=== PATIENT | male | born 1980 | race Caucasian/White ===

== ENCOUNTER 2017-10-01 10:36 | Inpatient (IN) | payer OTHER ==
[2017-10-01 10:44] VITALS: BMI 25.0
--- NOTE | 2017-10-01 12:49 | HP ---
CIWA Score - CIWA Score Nausea/Vomitin Muscle Tremors: 3 Anxiety: 3 Agitation: 3 Paroxysmal Sweats: 2 Orientation: 0-Oriented Tacttile Disturbances: 2-Mild Itch/Numbness/Burn Auditory Disturbances: 2-Mild Harshness/Frighten Visual Disturbances: 1-Very Mild Sensitivity Headache: 2-Mild CIWA-Ar Total Score: 21 Admission ROS BHS - HPI Chief Complaint: i need help to stop drinking alcoho,heroin abused Allergies/Adverse Reactions: Allergies Allergy/AdvReac Type Severity Reaction Status Date / Time chlordiazepoxide HCl Allergy Severe Difficulty Verified 10/01/17 13:30 [From Librium] Breathing haloperidol [From Haldol] Allergy Severe Difficulty Verified 10/01/17 12:41 Breathing History of Present Illness: this 37 years old male with alcohol dependence with heroin abused,seeking detox, withdrawal symptom,last detox [facility] 09/08/17 to 09/10/17 seizure last 2010 syncope nicotine dependence schizoaffective disorder bipolar disorder weight loss longest period of sobriety 3 years asthma Exam Limitations: No Limitations - Ebola screening Have you traveled outside of the country in the last 21 days: No Have you had contact with anyone from an Ebola affected area: No Have you been sick,other than usual withdrawal symptoms: No Do you have a fever: No - Review of Systems Constitutional: Loss of Appetite, Malaise, Night Sweats, Changes in sleep, Weakness, Unexplained wgt Loss EENT: reports: Nose Congestion Cardiac: reports: No Symptoms Reported, Other (childhood asthma) GI: reports: Nausea, Vomiting, Abdominal cramping : reports: No Symptoms Reported Musculoskeletal: reports: Back Pain, Muscle Pain Integumentary: reports: Dryness Neuro: reports: Headache, Tremors Endocrine: reports: No Symptoms Reported Hematology: reports: No Symptoms Reported Psychiatric: reports: No Sypmtoms Reported, Judgement Intact, Mood/Affect Appropiate, Orientated x3, other (schizoaffective disorder bipolar 1 disorder) Patient History - Patient Medical History Hx Anemia: No Hx Asthma: No Hx Chronic Obstructive Pulmonary Disease (COPD): No Hx Cancer: No Hx Cardiac Disorders: No Hx Congestive Heart Failure: No Hx Hypertension: No Hx Hypercholesterolemia: No Hx Pacemaker: No HX Cerebrovascular Accident: No Hx Seizures: Yes (pt. reported alcohol r/t seizure, last episode was one yr ago. ) Hx Dementia: No Hx Diabetes: No Hx Gastrointestinal Disorders: No Hx Liver Disease: No Hx Genitourinary Disorders: No Hx Sexually Transmitted Disorders: No Hx Renal Disease (ESRD): No Hx Hepatitis C: No Hx Depression: Yes Hx Suicide Attempt: Yes (CUTTER,OVERDOSE) Hx Schizophrenia: Yes (SCHIZOAFFECTIVE BIPOLAR TYPE) Other Medical History: NO SUICIDAL,NO HOMICIDAL - Patient Surgical History Past Surgical History: No Hx Neurologic Surgery: No Hx Cataract Extraction: No Hx Cardiac Surgery: No Hx Lung Surgery: No Hx Breast Surgery: No Hx Breast Biopsy: No Hx Abdominal Surgery: No Hx Appendectomy: No Hx Cholecystectomy: No Hx Genitourinary Surgery: No Hx Section: No Hx Orthopedic Surgery: No Anesthesia Reaction: No - PPD History Previous Implant?: Yes Documented Results: Negative w/o proof Date: 03/30/16 Results: 0 mm - Smoking Cessation Smoking history: Current every day smoker Have you smoked in the past 12 months: Yes Aproximately how many cigarettes per day: 10 Cigars Per Day: 0 Hx Chewing Tobacco Use: No Initiated information on smoking cessation: Yes 'Breaking Loose' booklet given: 10/01/17 - Substance & Tx. History Hx Alcohol Use: Yes Hx Substance Use: No Substance Use Type: Alcohol, Heroin Hx Substance Use Treatment: Yes ([facility] 09/08/17 TO 09/10/17) - Substances Abused Alcohol Route: Oral Frequency: Daily Amount used: 4-5 pints vodka Age of first use: 12 Date of Last Use: 10/01/17 Heroin Route: Inhalation Frequency: 3-6 times per week Amount used: 3 bags Age of first use: 29 Date of Last Use: 09/17/17 Family Disease History - Family Disease History Family Disease History: Diabetes: Grandparent (HTN,OR,BREAST), Heart Disease: Grandparent, CA: Grandparent Admission Physical Exam BHS - Vital Signs Vital Signs: Vital Signs - 24 hr 10/01/17 10:38 Temperature 96.8 F L Pulse Rate 123 H Respiratory 20 Rate Blood Pressure 111/70 - Physical General Appearance: Yes: Moderate Distress, Tremorous, Irritable, Sweating, Anxious HEENTM: Yes: Normal ENT Inspection, CAMILA, Pharynx Normal Respiratory: Yes: Lungs Clear, Normal Breath Sounds, No Respiratory Distress Neck: Yes: Within Normal Limits, Supple, Trachea in good position Breast: Yes: Within Normal Limits Cardiology: Yes: Tachycardia Abdominal: Yes: Within Normal Limits, Normal Bowel Sounds, Non Tender, Flat, Soft Genitourinary: Yes: Within Normal Limits Back: Yes: Muscle Spasm Musculoskeletal: Yes: full range of Motion, Back pain, Muscle Pain Extremities: Yes: Within Normal Limits, Normal Range of Motion, Tremors Neurological: Yes: Within Normal Limits, tech brazer tester II-XII NML intact, Alert, Motor Strength 5/5 Integumentary: Yes: Dry, Other (TATTOOS) Lymphatic: Yes: Within Normal Limits - Diagnostic (1) Alcohol dependence with uncomplicated withdrawal Current Visit: Yes Status: Acute (2) Nicotine dependence Current Visit: Yes Status: Chronic Qualifiers: Nicotine product type: cigarettes Substance use status: uncomplicated Qualified Code(s): F17.210 - Nicotine dependence, cigarettes, uncomplicated (3) Schizoaffective disorder, bipolar type Current Visit: Yes Status: Chronic Comment: history. (4) Weight loss Current Visit: Yes Status: Acute Cleared for Admission [facility] - Detox or Rehab [facility] Level of Care: Medically Managed Detox Regimen/Protocol: Valium [facility] Breath Alcohol Content Breath Alcohol Content: 0.266 Urine Drug Screen - Results Drug Screen Negative: No Urine Drug Screen Results: TCA-Tricyclic Antidepress
[2017-10-01] MEDS ORDERED: MAGNESIUM CITRATE 300 ML BOTTLE PO PRN (12:58)
[2017-10-01] MEDS ORDERED: MAG HYDROX/AL HYDROX/SIMETH 30 ML UNIT-DOSE CUP PO PRN (12:58)
[2017-10-01] MEDS ORDERED: LOPERAMIDE HCL 2 MG CAPSULE PO PRN (12:58)
[2017-10-01] MEDS ORDERED: IBUPROFEN 400 MG TABLET (FP) PO PRN (12:58)
[2017-10-01] MEDS ORDERED: MAGNESIUM HYDROX 2400MG/30ML ORAL SUSPENSION 30 ML CUP PO PRN (12:58)
[2017-10-01] MEDS ORDERED: ACETAMINOPHEN 325 MG TABLET (FP) PO PRN (12:58)
[2017-10-01] MEDS ORDERED: P-EPHED 60MG/TRIPROLIDI 2.5MG TABLET PO PRN (12:58)
[2017-10-01] MEDS ORDERED: hydrOXYzine PAMOATE 50 MG CAPSULE (FP) PO PRN (12:58)
[2017-10-01] MEDS ORDERED: guaiFENesin/D-METHORPHAN HB 10 ML UNIT-DOSE CUPS PO PRN (12:58)
[2017-10-01] MEDS ORDERED: MENTHOL/PHENOL 1 EACH UD MM PRN (12:58)
[2017-10-01] MEDS ORDERED: ALBUTEROL SO4 18 GM HFA INHALER IH PRN (13:04)
[2017-10-01] MEDS ORDERED: diazePAM 5 MG TABLET PO ONE (15:00)
--- NOTE | 2017-10-01 16:15 | CONSULT ---
[facility] Psychiatric Consult - Data Date of interview: 10/01/17 Admission source: [facility] Identifying data: Pt. is a 37 year old single male, father of three, unemployed , homeless, and receiving benefits from SSI/SSD. This is one of two admissions for patient. Pt. admitted to detox for alcohol dependence. Substance Abuse History: Smoking Cessation. Smoking history: Current every day smoker. Have you smoked in the past 12 months: Yes. Aproximately how many cigarettes per day: 10. Cigars Per Day: 0. Hx Chewing Tobacco Use: No. Initiated information on smoking cessation: Yes. 'Breaking Loose' booklet given : 10/01/17. - Substance & Tx. History. Hx Alcohol Use: Yes. Hx Substance Use : No. Substance Use Type: Alcohol, Heroin. Hx Substance Use Treatment: Yes ( [facility] 09/08/17 TO 09/10/17) Medical History: Seizures ( r/t alcohol withdrawal) Psychiatric History: Patient's first encounter with a psychiatrist was in 2003 while living in [place] which resulted in a diagnosis of Bipolar disorder. Pt. reports approximately ten psychiatric hospitalizations, most recently from 2008- 2009 at [facility] for ten months. Pt. was diagnosed with Schizoaffective disorder. Pt. has also been hospitalized at [facility] and [facility]. Pt. is currently receiving outpatient treatment at [facility] outpatient clinic. Pt. reports taking Seroquel 800mg qhs + Mirtzapine 30mg qhs. [facility] [phone] and residential mortgage underwriter was informed that patient is prescribed Seroquel 400mg BID and Mirtazapine 30mg qhs. Pt. reports approximately 5 suicide attempts via cutting from 2003- 2008. Pt. currently denies suicidal and homicidal ideation. Physical/Sexual Abuse/Trauma History: Denies. Mental Status Exam - Mental Status Exam Alert and Oriented to: Time, Place, Person Cognitive Function: Good Patient Appearance: Well Groomed Mood: Euthymic Affect: Appropriate Patient Behavior: Appropriate, Cooperative Speech Pattern: Clear, Appropriate Voice Loudness: Normal Thought Process: Goal Oriented Thought Disorder: Not Present Hallucinations: Denies Suicidal Ideation: Denies Homicidal Ideation: Denies Insight/Judgement: Poor Sleep: Poorly Appetite: Fair Muscle strength/Tone: Normal Gait/Station: Normal Psychiatric Findings - Problem List ([place] 1, 2,3) (1) Alcohol dependence with uncomplicated withdrawal Current Visit: Yes Status: Acute (2) Nicotine dependence Current Visit: Yes Status: Chronic Qualifiers: Nicotine product type: cigarettes Substance use status: uncomplicated Qualified Code(s): F17.210 - Nicotine dependence, cigarettes, uncomplicated (3) Schizoaffective disorder, bipolar type Current Visit: Yes Status: Chronic Comment: history. - Initial Treatment Plan Initial Treatment Plan: Psychoeducation provided. Detoxification in progress. [facility] pharmacy called at [phone]. As per [facility] pharmacy patient is prescribed Seroquel 400mg BID (last script given on 09/02/16) + Mirtzapine 30mg qhs ( last script given on 09/21/17). Seroquel 400mg qhs + Mirtzapine 30mg qhs + Seroquel 100mg po daily to be ordered (reduce dosage due to oversedation of drug to drug interaction). Plan is to titrate Seroquel morning dose as tolerated. Pt. agreeable with plan. Benefits and side effects discussed. Verbal consent given. Will continue to monitor.
[2017-10-01 18:32] LABS: URINE APPEARANCE CLEAR; URINE BILIRUBIN NEGATIVE (<2.0 mg/dL); URINE BLOOD NEGATIVE (NEGATIVE); URINE COLOR YELLOW; URINE GLUCOSE (UA) NEGATIVE (NEGATIVE); URINE KETONE NEGATIVE (NEGATIVE); URINE LEUK ESTERASE NEGATIVE (NEGATIVE); URINE NITRITE NEGATIVE (NEGATIVE); URINE PROTEIN NEGATIVE (NEGATIVE); URINE UROBILINOGEN NEGATIVE mg/dL (0.2-1.0)
[2017-10-01] MEDS: diazePAM 5 MG TABLET PO PRN (19:04)
[2017-10-01] MEDS: THIAMINE HCL 100 MG TABLET (FP) PO SCH (22:09)
[2017-10-01] MEDS: QUEtiapine FUMARATE 400 MG TABLET PO SCH (22:10)
[2017-10-01] MEDS: diazePAM 5 MG TABLET PO SCH (22:10)
[2017-10-01] MEDS: MELATONIN 5 MG TABLETS PO SCH (22:10)
[2017-10-01] MEDS: MIRTAZAPINE 30 MG TABLET (FP) PO SCH (22:10)
[2017-10-02] MEDS: diazePAM 5 MG TABLET PO SCH ×3 (05:52→22:11)
[2017-10-02 09:57] LABS: HEMATOCRIT 44.7 % (35.4-49); HEMOGLOBIN 15.1 GM/dL (11.7-16.9); MCHC 33.7 g/dl (32.0-35.9); MEAN CELL VOLUME 103.7 fl (80-96); MEAN PLT VOLUME 7.6 fl (7.5-11.1); PLATELET COUNT 199 K/MM3 (134-434); RDW 16.3 % (11.9-15.9); WHITE BLOOD COUNT 4.6 K/mm3 (4.0-10.0)
[2017-10-02] MEDS: QUEtiapine FUMARATE 100 MG TABLET (FP) PO SCH (10:23)
[2017-10-02] MEDS: PRENATAL VITAMINS W/ FOLIC ACID TABLET (FP) PO SCH (10:23)
[2017-10-02] MEDS: diazePAM 5 MG TABLET PO PRN ×2 (10:24→16:45)
[2017-10-02 10:26] LABS: ALBUMIN 4.1 g/dl (3.4-5.0); ALK PHOS 85 U/L (45-117); ANION GAP 15 (8-16); BILIRUBIN,TOTAL 0.3 mg/dL (0.2-1.0); BLOOD UREA NITROGEN 12 mg/dL (7-18); CALCIUM 8.7 mg/dL (8.5-10.1); CHLORIDE 104 mmol/L (98-107); CO2 26 mmol/L (21-32); CREATININE 0.9 mg/dL (0.7-1.3); POTASSIUM 3.8 mmol/L (3.5-5.1); SGOT/AST 35 U/L (15-37); SGPT/ALT 32 U/L (12-78); SODIUM 145 mmol/L (136-145); TOT PROT 7.3 g/dl (6.4-8.2)
[2017-10-02] MEDS ORDERED: FLU VACCINE QUAD 60 MCG/0.5 ML (MDV 17-18) IM ONE (12:00)
--- NOTE | 2017-10-02 21:16 | PN ---
[facility] CIWA - CIWA Score Nausea/Vomitin Muscle Tremors: 3 Anxiety: 3 Agitation: 2 Paroxysmal Sweats: 2 Orientation: 0-Oriented Tacttile Disturbances: 0-None Auditory Disturbances: 0-None Visual Disturbances: 0-None Headache: 0-None Present CIWA-Ar Total Score: 13 BHS COWS - Scale Resting Pulse: 1= PA 81-100 Sweatin=Flushed/Facial Moisture Restless Observation: 1= Difficult to Sit Still Pupil Size: 0= Normal to Room Light Bone or Joint Aches: 1= Mild Discomfort Runny Nose/ Eye Tearin= Nasal Congestion GI Upset > 30mins: 1= Stomach Cramp Tremor Observation of Outstretched Hands: 2= Slight Tremor Visible Yawning Observation: 1= 1-2x During Session Anxiety or Irritability: 2=Irritable/Anxious Goose Flesh Skin: 0=Smooth Skin COWS Score: 12 [facility] Progress Note (SOAP) Subjective: shakes nasal congestion sleep disturbance sweats Objective: 10/02/17 21:15 A & O x 3 Laboratory Last Values WBC 4.6 K/mm3 (4.0-10.0) 10/02/17 06:00 RBC 4.30 M/mm3 (4.00-5.60) 10/02/17 06:00 Hgb 15.1 GM/dL (11.7-16.9) D 10/02/17 06:00 Hct 44.7 % (35.4-49) 10/02/17 06:00 MCV 103.7 fl (80-96) H 10/02/17 06:00 MCH 35.0 pg (25.7-33.7) H 10/02/17 06:00 MCHC 33.7 g/dl (32.0-35.9) 10/02/17 06:00 RDW 16.3 % (11.9-15.9) H D 10/02/17 06:00 Plt Count 199 K/MM3 (134-434) D 10/02/17 06:00 MPV 7.6 fl (7.5-11.1) 10/02/17 06:00 Sodium 145 mmol/L (136-145) 10/02/17 06:00 Potassium 3.8 mmol/L (3.5-5.1) 03/24/18 06:00 Chloride 104 mmol/L (98-107) 10/02/17 06:00 Carbon Dioxide 26 mmol/L (21-32) 10/02/17 06:00 Anion Gap 15 (8-16) 10/02/17 06:00 BUN 12 mg/dL (7-18) 10/02/17 06:00 Creatinine 0.9 mg/dL (0.7-1.3) 10/02/17 06:00 Creat Clearance w eGFR > 60 (>60) 10/02/17 06:00 Calcium 8.7 mg/dL (8.5-10.1) 10/02/17 06:00 Total Bilirubin 0.3 mg/dL (0.2-1.0) D 10/02/17 06:00 AST 35 U/L (15-37) D 10/02/17 06:00 ALT 32 U/L (12-78) D 10/02/17 06:00 Alkaline Phosphatase 85 U/L (45-117) D 10/02/17 06:00 Total Protein 7.3 g/dl (6.4-8.2) 10/02/17 06:00 Albumin 4.1 g/dl (3.4-5.0) 10/02/17 06:00 Urine Color Yellow 10/01/17 17:30 Urine Appearance Clear 10/01/17 17:30 Urine pH 7.0 (5.0-8.0) 10/01/17 17:30 Ur Specific [place] 1.019 (1.001-1.035) 10/01/17 17:30 Urine Protein Negative (NEGATIVE) 10/01/17 17:30 Urine Glucose (UA) Negative (NEGATIVE) 10/01/17 17:30 Urine Ketones Negative (NEGATIVE) 10/01/17 17:30 Urine Blood Negative (NEGATIVE) 10/01/17 17:30 Urine Nitrite Negative (NEGATIVE) 10/01/17 17:30 Urine Bilirubin Negative (<2.0 mg/dL) 10/01/17 17:30 Urine Urobilinogen Negative mg/dL (0.2-1.0) 10/01/17 17:30 Ur Leukocyte Esterase Negative (NEGATIVE) 10/01/17 17:30 labs noted Assessment: 10/02/17 21:16 withdrawal sx Plan: continue detox
[2017-10-02] MEDS: MELATONIN 5 MG TABLETS PO SCH (22:10)
[2017-10-02] MEDS: QUEtiapine FUMARATE 400 MG TABLET PO SCH (22:11)
[2017-10-02] MEDS: MIRTAZAPINE 30 MG TABLET (FP) PO SCH (22:11)
[2017-10-02] MEDS: THIAMINE HCL 100 MG TABLET (FP) PO SCH (22:12)
[2017-10-03] MEDS: diazePAM 5 MG TABLET PO PRN ×2 (06:14→13:59)
[2017-10-03] MEDS: diazePAM 5 MG TABLET PO SCH ×2 (10:40→22:32)
[2017-10-03] MEDS: QUEtiapine FUMARATE 100 MG TABLET (FP) PO SCH (10:40)
[2017-10-03] MEDS: PRENATAL VITAMINS W/ FOLIC ACID TABLET (FP) PO SCH (10:40)
--- NOTE | 2017-10-03 12:08 | PN ---
[facility] CIWA - CIWA Score Nausea/Vomitin-No Nausea/No Vomiting Muscle Tremors: 4-Moderate,w/Arms Extend Anxiety: 4-Mod. Anxious/Guarded Agitation: 3 Paroxysmal Sweats: 1-Minimal Palms Moist Orientation: 0-Oriented Tacttile Disturbances: 0-None Auditory Disturbances: 0-None Visual Disturbances: 0-None Headache: 0-None Present CIWA-Ar Total Score: 12 BHS Progress Note (SOAP) Subjective: sweat tremor anxiety restlessness Objective: 10/03/17 12:07 Vital Signs Temperature 99 F 10/03/17 10:00 Pulse Rate 95 H 10/03/17 10:00 Respiratory Rate 16 10/03/17 10:00 Blood Pressure 127/86 10/03/17 10:00 O2 Sat by Pulse Oximetry (%) Laboratory Last Values WBC 4.6 K/mm3 (4.0-10.0) 10/02/17 06:00 RBC 4.30 M/mm3 (4.00-5.60) 10/02/17 06:00 Hgb 15.1 GM/dL (11.7-16.9) D 10/02/17 06:00 Hct 44.7 % (35.4-49) 10/02/17 06:00 MCV 103.7 fl (80-96) H 10/02/17 06:00 MCH 35.0 pg (25.7-33.7) H 10/02/17 06:00 MCHC 33.7 g/dl (32.0-35.9) 10/02/17 06:00 RDW 16.3 % (11.9-15.9) H D 10/02/17 06:00 Plt Count 199 K/MM3 (134-434) D 10/02/17 06:00 MPV 7.6 fl (7.5-11.1) 10/02/17 06:00 Sodium 145 mmol/L (136-145) 10/02/17 06:00 Potassium 3.8 mmol/L (3.5-5.1) 10/02/17 06:00 Chloride 104 mmol/L (98-107) 10/02/17 06:00 Carbon Dioxide 26 mmol/L (21-32) 10/02/17 06:00 Anion Gap 15 (8-16) 10/02/17 06:00 BUN 12 mg/dL (7-18) 10/02/17 06:00 Creatinine 0.9 mg/dL (0.7-1.3) 10/02/17 06:00 Creat Clearance w eGFR > 60 (>60) 10/02/17 06:00 Calcium 8.7 mg/dL (8.5-10.1) 10/02/17 06:00 Total Bilirubin 0.3 mg/dL (0.2-1.0) D 10/02/17 06:00 AST 35 U/L (15-37) D 10/02/17 06:00 ALT 32 U/L (12-78) D 10/02/17 06:00 Alkaline Phosphatase 85 U/L (45-117) D 10/02/17 06:00 Total Protein 7.3 g/dl (6.4-8.2) 10/02/17 06:00 Albumin 4.1 g/dl (3.4-5.0) 10/02/17 06:00 Urine Color Yellow 10/01/17 17:30 Urine Appearance Clear 10/01/17 17:30 Urine pH 7.0 (5.0-8.0) 10/01/17 17:30 Ur Specific [place] 1.019 (1.001-1.035) 10/01/17 17:30 Urine Protein Negative (NEGATIVE) 10/01/17 17:30 Urine Glucose (UA) Negative (NEGATIVE) 10/01/17 17:30 Urine Ketones Negative (NEGATIVE) 10/01/17 17:30 Urine Blood Negative (NEGATIVE) 10/01/17 17:30 Urine Nitrite Negative (NEGATIVE) 10/01/17 17:30 Urine Bilirubin Negative (<2.0 mg/dL) 10/01/17 17:30 Urine Urobilinogen Negative mg/dL (0.2-1.0) 10/01/17 17:30 Ur Leukocyte Esterase Negative (NEGATIVE) 10/01/17 17:30 RPR Titer Nonreactive (NONREACTIVE) 10/02/17 06:00 lab noted Assessment: 10/03/17 12:09 withdrawal sx Plan: continue detox
[2017-10-03 14:13] LABS: GLUCOSE,RANDOM 134 mg/dL (74-106)
[2017-10-03] MEDS: MIRTAZAPINE 30 MG TABLET (FP) PO SCH (22:32)
[2017-10-03] MEDS: THIAMINE HCL 100 MG TABLET (FP) PO SCH (22:32)
[2017-10-03] MEDS: MELATONIN 5 MG TABLETS PO SCH (22:32)
[2017-10-03] MEDS: QUEtiapine FUMARATE 400 MG TABLET PO SCH (22:32)
[2017-10-04] MEDS: diazePAM 5 MG TABLET PO PRN (08:47)
--- NOTE | 2017-10-04 09:12 | EKG ---
Test Reason : Blood Pressure : / mmHG Vent. Rate : 098 BPM Atrial Rate : 098 BPM P-R Int : 138 ms QRS Dur : 094 ms QT Int : 360 ms P-R-T Axes : 068 042 043 degrees QTc Int : 459 ms NORMAL SINUS RHYTHM NORMAL ECG WHEN COMPARED WITH ECG OF 01-OCT-2017 14:08, NO SIGNIFICANT CHANGE WAS FOUND Confirmed by KIERRA AGUILERA MD ([id number]) on 10/04/2017 9:12:01 AM Referred By: Confirmed By:KIERRA AGUILERA MD
--- NOTE | 2017-10-04 09:16 | EKG ---
Test Reason : Blood Pressure : / mmHG Vent. Rate : 105 BPM Atrial Rate : 105 BPM P-R Int : 134 ms QRS Dur : 094 ms QT Int : 362 ms P-R-T Axes : 070 027 045 degrees QTc Int : 478 ms SINUS TACHYCARDIA OTHERWISE NORMAL ECG NO PREVIOUS ECGS AVAILABLE Confirmed by KIERRA AGUILERA MD ([id number]) on 10/04/2017 9:15:49 AM Referred By: Confirmed By:KIERRA AGUILERA MD
[2017-10-04 09:50] VITALS: BP 127/77; PULSE 100; TEMP 97.2
[2017-10-04] MEDS: PRENATAL VITAMINS W/ FOLIC ACID TABLET (FP) PO SCH (10:19)
[2017-10-04] MEDS: QUEtiapine FUMARATE 100 MG TABLET (FP) PO SCH (10:19)
[2017-10-04] MEDS: diazePAM 5 MG TABLET PO SCH (10:19)
--- NOTE | 2017-10-04 10:21 | PN ---
[facility] Progress Note (SOAP) Subjective: ALERT,NO COMPLAINT Objective: 10/04/17 10:18 Vital Signs Temperature 97.2 F L 10/04/17 09:50 Pulse Rate 100 H 10/04/17 09:50 Respiratory Rate 18 10/04/17 09:50 Blood Pressure 127/77 10/04/17 09:50 O2 Sat by Pulse Oximetry (%) Assessment: 10/04/17 10:18 PATIENT STATED HE HAS TO LEAVE CONCERNING ABOUT THE PLACE TO STAY,STATED HE HAS TO RETURN TO [facility] BEFORE HAS LOST HIS PLACE , Plan: DISCHARGE TODAY,FOLLOW UP WITH AFTER CARE PROGRAM ARRANGEMENT
--- NOTE | 2017-10-04 10:25 | DS ---
[facility] Detox Discharge Summary Admission Date: 10/01/17 Discharge Date: 10/04/17 - History Present History: Alcohol Dependence Pertinent Past History: NICOTINE DEPENDENCE WEIGHT LOSS SCHIZOAFFECTIVE DISORDER - Physical Exam Results Vital Signs: Vital Signs Temperature 97.2 F L 10/04/17 09:50 Pulse Rate 100 H 10/04/17 09:50 Respiratory Rate 18 10/04/17 09:50 Blood Pressure 127/77 10/04/17 09:50 O2 Sat by Pulse Oximetry (%) Pertinent Admission Physical Exam Findings: WITHDRAWAL SIGNS AND SYMPTOM - Treatment Hospital Course: Detox Protocol Followed, Detoxed Safely, Responded well, Discharged Condition Good Patient has Accepted a Rehab Referral to: DECLINED - Medication Discharge Medications: Ambulatory Orders Mirtazapine [Remeron -] 30 mg PO HS 03/28/16 Quetiapine Fumarate [Seroquel -] 800 mg PO HS 03/28/16 - Diagnosis (1) Alcohol dependence with uncomplicated withdrawal Current Visit: Yes Status: Acute (2) Nicotine dependence Current Visit: Yes Status: Chronic Qualifiers: Nicotine product type: cigarettes Substance use status: uncomplicated Qualified Code(s): F17.210 - Nicotine dependence, cigarettes, uncomplicated (3) Schizoaffective disorder, bipolar type Current Visit: Yes Status: Chronic (4) Weight loss Current Visit: Yes Status: Acute - AMA Did Patient Leave Against Medical Advice: No
--- NOTE | 2017-10-04 10:27 | PN ---
BHS Progress Note Note: BGM IS 128 ,ADVISE DIET ,FOLLOW UP WITH AFTER CARE PROGRAM ARRANGEMENT
[2017-10-05] MEDS ORDERED: diazePAM 5 MG TABLET PO SCH (10:00)
== END 2017-10-04 11:15 | disposition home or self-care (01) | DRG 897 ==
LOC: YASAS 10:36 → Y6N 13:56
PROVIDERS: ADMIT Internal Medicine; ATTEND Internal Medicine
PROC: HZ2ZZZZ Detoxification Services for Substance Abuse Treatment (ICD-10-PCS; principal; 2017-10-01)
DX: F19.230 Other psychoactive substance dependence with withdrawal, uncomplicated (principal); F11.20 Opioid dependence, uncomplicated; F10.230 Alcohol dependence with withdrawal, uncomplicated; F17.210 Nicotine dependence, cigarettes, uncomplicated; F25.0 Schizoaffective disorder, bipolar type; R00.0 Tachycardia, unspecified; Z88.8 Allergy status to other drugs, medicaments and biological substances; Z87.898 Personal history of other specified conditions; Z91.5 Personal history of self-harm
CPT/HCPCS: 36415; 80053; 81003; 82962; 85027; 86593; 93005; 93010

== ENCOUNTER 2018-06-18 11:54 | Inpatient (IN) | payer OTHER ==
[2018-06-18 12:16] VITALS: BMI 24.0
--- NOTE | 2018-06-18 12:48 | HP ---
CIWA Score Nausea/Vomitin Muscle Tremors: 2 Anxiety: 2 Agitation: 2 Paroxysmal Sweats: 1-Minimal Palms Moist Orientation: 0-Oriented Tacttile Disturbances: 1-Very Mild Itch/Numbness Auditory Disturbances: 1-Very Mild Visual Disturbances: 0-None Headache: 2-Mild CIWA-Ar Total Score: 13 - Admission Criteria OASAS Guidelines: Admission for Medically Managed Detox: Requires at least one of the followin. CIWA greater than 12 2. Seizures within the past 24 hours 3. Delirium tremens within the past 24 hours 4. Hallucinations within the past 24 hours 5. Acute intervention needed for co occurring medical disorder 6. Acute intervention needed for co occurring psychiatric disorder 7. Severe withdrawal that cannot be handled at a lower level of care (continued vomiting, continued diarrhea, abnormal vital signs) requiring intravenous medication and/or fluids 8. Patient presents the following: CIWA greater than 12 Admission Criteria Met: Admission criteria met Admission ROS S - HPI Chief Complaint: i need help to stop drinking alcohol,heroin abused,on suboxone maintainence 8mg/ 2mgs sl tid last taken suboxone 06/16/18 syncope seizure last 2 days ago right inguinal hernia for 2 months schizoaffective disorder longest period of sobriety 2 years weight loss history fo asthma Allergies/Adverse Reactions: Allergies Allergy/AdvReac Type Severity Reaction Status Date / Time chlordiazepoxide HCl Allergy Severe Difficulty Verified 06/18/18 14:36 [From Librium] Breathing haloperidol [From Haldol] Allergy Severe Difficulty Verified 06/18/18 14:36 Breathing History of Present Illness: this 37 years old male with alcohol dependence,heroin abused,on suboxone 8mg/ 2mgs sl tid schizoaffective disorder for detox as mentioned above Exam Limitations: No Limitations - Ebola screening Have you traveled outside of the country in the last 21 days: No (N) Have you had contact with anyone from an Ebola affected area: No Have you been sick,other than usual withdrawal symptoms: No Do you have a fever: No - Review of Systems Constitutional: Chills, Loss of Appetite, Malaise, Night Sweats, Changes in sleep, Weakness, Unintentional Wgt. Loss EENT: reports: Tearing, Nose Congestion Respiratory: reports: No Symptoms reported Cardiac: reports: Palpitations GI: reports: Nausea, Vomiting, Abdominal cramping : reports: No Symptoms Reported Musculoskeletal: reports: Back Pain, Muscle Pain, Other (right inguinal hernia) Integumentary: reports: Dryness Neuro: reports: Headache, Tremors Endocrine: reports: No Symptoms Reported Hematology: reports: No Symptoms Reported Psychiatric: reports: No Sypmtoms Reported, Judgement Intact, Mood/Affect Appropiate, Orientated x3, other (schizoaffective disorder) Patient History - Patient Medical History Hx Anemia: No Hx Asthma: No Hx Chronic Obstructive Pulmonary Disease (COPD): No Hx Cancer: No Hx Cardiac Disorders: No Hx Congestive Heart Failure: No Hx Hypertension: No Hx Hypercholesterolemia: No Hx Pacemaker: No HX Cerebrovascular Accident: No Hx Seizures: Yes (pt. reported alcohol r/t seizure, last episode was one yr ago. ) Hx Dementia: No Hx Diabetes: No Hx Gastrointestinal Disorders: No Hx Liver Disease: No Hx Genitourinary Disorders: No Hx Sexually Transmitted Disorders: No Hx Renal Disease (ESRD): No Hx Thyroid Disease: No Hx Human Immunodeficiency Virus (HIV): No (last 01/26 negative) Hx Hepatitis C: No Hx Depression: Yes Hx Suicide Attempt: Yes (CUTTER,OVERDOSE last 2006) Hx Bipolar Disorder: No Hx Schizophrenia: Yes (SCHIZOAFFECTIVE BIPOLAR TYPE) Other Medical History: no suicidal,no homicidal - Patient Surgical History Past Surgical History: No Hx Neurologic Surgery: No Hx Cataract Extraction: No Hx Cardiac Surgery: No Hx Lung Surgery: No Hx Breast Surgery: No Hx Breast Biopsy: No Hx Abdominal Surgery: No Hx Appendectomy: No Hx Cholecystectomy: No Hx Genitourinary Surgery: No Hx Section: No Hx Orthopedic Surgery: No Anesthesia Reaction: No - PPD History Previous Implant?: Yes Documented Results: Negative w/o proof Implanted On Prior [facility] Admission?: Yes Date: 03/30/16 Results: 0 mm PPD to be Administered?: Yes - Smoking Cessation Smoking history: Current every day smoker Have you smoked in the past 12 months: Yes Aproximately how many cigarettes per day: 10 Cigars Per Day: 0 Hx Chewing Tobacco Use: No Initiated information on smoking cessation: Yes 'Breaking Loose' booklet given: 06/18/18 - Substance & Tx. History Hx Alcohol Use: Yes Hx Substance Use: No Substance Use Type: Alcohol, Heroin Hx Substance Use Treatment: Yes ([facility] 10/01/17 to 10/04/17) - Substances Abused Alcohol Route: Oral Frequency: 1-3 times last 30 days Amount used: 4pints of vodka Age of first use: 11 Date of Last Use: 06/17/18 Heroin Route: Inhalation Frequency: Daily Amount used: 4 bags Age of first use: 17 Date of Last Use: 06/17/18 Family Disease History - Family Disease History Family Disease History: Diabetes: Grandparent (HTN,[place],BREAST), Heart Disease: Grandparent, [place]: Grandparent Admission Physical Exam [facility] - Vital Signs Vital Signs: Vital Signs - 24 hr 06/18/18 12:12 Temperature 98.0 F Pulse Rate 119 H Respiratory 18 Rate Blood Pressure 114/73 - Physical General Appearance: Yes: Moderate Distress, Tremorous, Irritable, Sweating, Anxious HEENTM: Yes: Normal ENT Inspection, CAMILA, Pharynx Normal Respiratory: Yes: Lungs Clear, Normal Breath Sounds, No Respiratory Distress Neck: Yes: Within Normal Limits, Supple, Trachea in good position Breast: Yes: Within Normal Limits Cardiology: Yes: Tachycardia Abdominal: Yes: Within Normal Limits, Normal Bowel Sounds, Soft, Other (right inguinal direct hernia) Genitourinary: Yes: Within Normal Limits Back: Yes: Muscle Spasm Musculoskeletal: Yes: Back pain, Joint Stiffness, Muscle Pain Extremities: Yes: Tremors Neurological: Yes: 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 (5) Heroin abuse Current Visit: Yes Status: Acute (6) Encounter for monitoring Suboxone maintenance therapy Current Visit: Yes Status: Acute (7) Direct inguinal hernia Current Visit: Yes Status: Acute Comment: right (8) Asthma Current Visit: Yes Status: Acute Cleared for Admission [facility] - Detox or Rehab [facility] Level of Care: Medically Managed Detox Regimen/Protocol: Valium S Breath Alcohol Content Breath Alcohol Content: 0.143 Urine Drug Screen - Results Drug Screen Negative: No Urine Drug Screen Results: OPI-Opiates, BUP-Suboxone
[2018-06-18] MEDS ORDERED: hydrOXYzine PAMOATE 50 MG CAPSULE (FP) PO PRN (13:06)
[2018-06-18] MEDS ORDERED: MAGNESIUM CITRATE 300 ML BOTTLE PO PRN (13:06)
[2018-06-18] MEDS ORDERED: P-EPHED 60MG/TRIPROLIDI 2.5MG TABLET PO PRN (13:06)
[2018-06-18] MEDS ORDERED: MAG HYDROX/AL HYDROX/SIMETH 30 ML UNIT-DOSE CUP PO PRN (13:06)
[2018-06-18] MEDS ORDERED: ACETAMINOPHEN 325 MG TABLET (FP) PO PRN (13:06)
[2018-06-18] MEDS ORDERED: MAGNESIUM HYDROX 2400MG/30ML ORAL SUSPENSION 30 ML CUP PO PRN (13:06)
[2018-06-18] MEDS ORDERED: MENTHOL/PHENOL 1 EACH UD MM PRN (13:06)
[2018-06-18] MEDS ORDERED: LOPERAMIDE HCL 2 MG CAPSULE PO PRN (13:06)
[2018-06-18] MEDS ORDERED: guaiFENesin/D-METHORPHAN HB 10 ML UNIT-DOSE CUPS PO PRN (13:06)
[2018-06-18] MEDS ORDERED: diazePAM 5 MG TABLET PO ONE (15:00)
[2018-06-18] MEDS: BUPRENORPHINE/NALOXONE 8 MG/2 MG FILM PACKET SL SCH ×2 (16:54→23:15)
[2018-06-18] MEDS: diazePAM 5 MG TABLET PO SCH ×2 (16:54→22:10)
[2018-06-18 17:59] LABS: URINE APPEARANCE CLEAR; URINE BILIRUBIN NEGATIVE (<2.0 mg/dL); URINE COLOR YELLOW; URINE GLUCOSE (UA) NEGATIVE (NEGATIVE); URINE KETONE NEGATIVE (NEGATIVE); URINE LEUK ESTERASE NEGATIVE (NEGATIVE); URINE NITRITE NEGATIVE (NEGATIVE); URINE PROTEIN NEGATIVE (NEGATIVE); URINE UROBILINOGEN NEGATIVE mg/dL (0.2-1.0)
[2018-06-18] MEDS: ALBUTEROL SO4 8 GM HFA INHALER IH PRN (18:30)
[2018-06-18] MEDS: ALBUTEROL SO4 2.5/IPRATROPIUM 0.5 INH SOL 3 ML VIAL.NEB. NEB PRN (18:36)
[2018-06-18] MEDS ORDERED: MELATONIN 5 MG TABLETS PO PRN (22:00)
[2018-06-18] MEDS: THIAMINE HCL 100 MG TABLET (FP) PO SCH (22:11)
[2018-06-19] MEDS: ALBUTEROL SO4 2.5/IPRATROPIUM 0.5 INH SOL 3 ML VIAL.NEB. NEB PRN (01:07)
[2018-06-19] MEDS ORDERED: ALBUTEROL SO4 2.5/IPRATROPIUM 0.5 INH SOL 3 ML VIAL.NEB. NEB PRN (01:29)
[2018-06-19] MEDS: diazePAM 5 MG TABLET PO PRN ×3 (01:32→18:11)
--- NOTE | 2018-06-19 01:33 | PN ---
[facility] Progress Note Note: Patient complained of chest tightness and shortness of breath. Patient has a history of asthma which he did not indicate on admission. Saturation 88% Action: Duoneb nebulizer treatment ordered. Post treatment saturation now is 94% with relief verbalized by patient.
[2018-06-19] MEDS: diazePAM 5 MG TABLET PO SCH ×3 (06:49→22:24)
[2018-06-19] MEDS: BUPRENORPHINE/NALOXONE 8 MG/2 MG FILM PACKET SL SCH ×3 (07:46→22:25)
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
[2018-06-19] MEDS: PRENATAL VITAMINS W/ FOLIC ACID TABLET (FP) PO SCH (10:28)
[2018-06-19] MEDS: ALBUTEROL SO4 8 GM HFA INHALER IH PRN ×3 (10:29→22:26)
[2018-06-19] MEDS ORDERED: MIRTAZAPINE 30 MG TABLET (FP) PO SCH (10:30)
[2018-06-19 10:32] LABS: HEMATOCRIT 40.6 % (35.4-49); MCH 34.8 pg (25.7-33.7); MCHC 34.5 g/dl (32.0-35.9); MEAN CELL VOLUME 100.8 fl (80-96); MEAN PLT VOLUME 7.3 fl (7.5-11.1); PLATELET COUNT 191 K/MM3 (134-434); RBC 4.03 M/mm3 (4.00-5.60); RDW 13.7 % (11.9-15.9); WHITE BLOOD COUNT 6.2 K/mm3 (4.0-10.0)
[2018-06-19] MEDS: IBUPROFEN 400 MG TABLET (FP) PO PRN (10:32)
[2018-06-19 11:12] LABS: ALBUMIN 3.2 g/dl (3.4-5.0); ALK PHOS 102 U/L (45-117); ANION GAP 10 MMOL/L (8-16); BILIRUBIN,TOTAL 0.5 mg/dL (0.2-1); BLOOD UREA NITROGEN 11 mg/dL (7-18); CALCIUM 8.2 mg/dL (8.5-10.1); CHLORIDE 105 mmol/L (98-107); CO2 27 mmol/L (21-32); CREATININE 0.7 mg/dL (0.55-1.3); GLUCOSE,RANDOM 79 mg/dL (74-106); POTASSIUM 3.6 mmol/L (3.5-5.1); SGOT/AST 16 U/L (15-37); SGPT/ALT 17 U/L (13-61); SODIUM 142 mmol/L (136-145); TOT PROT 6.1 g/dl (6.4-8.2)
--- NOTE | 2018-06-19 16:48 | PN ---
S CIWA - CIWA Score Nausea/Vomitin Muscle Tremors: 4-Moderate,w/Arms Extend Anxiety: 4-Mod. Anxious/Guarded Agitation: 2 Paroxysmal Sweats: 3 Orientation: 0-Oriented Tacttile Disturbances: 1-Very Mild Itch/Numbness Auditory Disturbances: 0-None Visual Disturbances: 0-None Headache: 1-Very Mild CIWA-Ar Total Score: 17 [facility] Progress Note (SOAP) Subjective: Chills, tremor, sweating, N/V/D/ Objective: 06/19/18 16:47 Last Vital Signs Temp Pulse Resp BP Pulse Ox 98.4 F 72 18 120/72 06/19/18 14:47 06/19/18 15:30 06/19/18 15:30 06/19/18 14:47 Laboratory Tests 06/18/18 06/19/18 06/19/18 15:55 07:15 07:15 WBC 6.2 RBC 4.03 Hgb 14.0 Hct 40.6 MCV 100.8 H MCH 34.8 H MCHC 34.5 RDW 13.7 D Plt Count 191 MPV 7.3 L Sodium 142 Potassium 3.6 Chloride 105 Carbon Dioxide 27 Anion Gap 10 BUN 11 Creatinine 0.7 Creat Clearance w eGFR > 60 Random Glucose 79 Calcium 8.2 L Total Bilirubin 0.5 AST 16 ALT 17 Alkaline Phosphatase 102 Total Protein 6.1 L Albumin 3.2 L Urine Color Yellow Urine Appearance Clear Urine pH 5.0 D Ur Specific [place] 1.021 Urine Protein Negative Urine Glucose (UA) Negative Urine Ketones Negative Urine Blood Negative Urine Nitrite Negative Urine Bilirubin Negative Urine Urobilinogen Negative Ur Leukocyte Esterase Negative RPR Titer 06/19/18 07:15 WBC RBC Hgb Hct MCV MCH MCHC RDW Plt Count MPV Sodium Potassium Chloride Carbon Dioxide Anion Gap BUN Creatinine Creat Clearance w eGFR Random Glucose Calcium Total Bilirubin AST ALT Alkaline Phosphatase Total Protein Albumin Urine Color Urine Appearance Urine pH Ur Specific [place] Urine Protein Urine Glucose (UA) Urine Ketones Urine Blood Urine Nitrite Urine Bilirubin Urine Urobilinogen Ur Leukocyte Esterase RPR Titer Nonreactive Labs reviewed Assessment: 06/19/18 16:47 Withdrawal symptoms Plan: Continue detox Encouraged PO water intake
[2018-06-19] MEDS: QUEtiapine FUMARATE 400 MG TABLET PO SCH (22:25)
[2018-06-19] MEDS: MIRTAZAPINE 30 MG TABLET (FP) PO SCH (22:25)
[2018-06-19] MEDS: THIAMINE HCL 100 MG TABLET (FP) PO SCH (22:25)
[2018-06-20] MEDS: ALBUTEROL SO4 8 GM HFA INHALER IH PRN ×2 (05:45→23:15)
[2018-06-20] MEDS: BUPRENORPHINE/NALOXONE 8 MG/2 MG FILM PACKET SL SCH ×3 (07:06→22:26)
[2018-06-20] MEDS: PRENATAL VITAMINS W/ FOLIC ACID TABLET (FP) PO SCH (10:30)
[2018-06-20] MEDS: diazePAM 5 MG TABLET PO SCH ×2 (10:31→22:25)
[2018-06-20] MEDS: IBUPROFEN 400 MG TABLET (FP) PO PRN (10:56)
--- NOTE | 2018-06-20 12:55 | PN ---
S CIWA - CIWA Score Nausea/Vomitin-No Nausea/No Vomiting Muscle Tremors: 3 Anxiety: 2 Agitation: 3 Paroxysmal Sweats: 1-Minimal Palms Moist Orientation: 0-Oriented Tacttile Disturbances: 1-Very Mild Itch/Numbness Auditory Disturbances: 0-None Visual Disturbances: 0-None Headache: 2-Mild CIWA-Ar Total Score: 12 [facility] Progress Note (SOAP) Subjective: tremor sweat anxiety restlessness trouble sleep at night Objective: 06/20/18 12:54 Vital Signs Temperature 98.1 F 06/20/18 09:04 Pulse Rate 111 H 06/20/18 09:04 Respiratory Rate 18 06/20/18 09:04 Blood Pressure 119/81 06/20/18 09:04 O2 Sat by Pulse Oximetry (%) Laboratory Last Values WBC 6.2 K/mm3 (4.0-10.0) 06/19/18 07:15 RBC 4.03 M/mm3 (4.00-5.60) 06/19/18 07:15 Hgb 14.0 GM/dL (11.7-16.9) 06/19/18 07:15 Hct 40.6 % (35.4-49) 06/19/18 07:15 MCV 100.8 fl (80-96) H 06/19/18 07:15 MCH 34.8 pg (25.7-33.7) H 06/19/18 07:15 MCHC 34.5 g/dl (32.0-35.9) 06/19/18 07:15 RDW 13.7 % (11.9-15.9) D 06/19/18 07:15 Plt Count 191 K/MM3 (134-434) 06/19/18 07:15 MPV 7.3 fl (7.5-11.1) L 06/19/18 07:15 Sodium 142 mmol/L (136-145) 06/19/18 07:15 Potassium 3.6 mmol/L (3.5-5.1) 06/19/18 07:15 Chloride 105 mmol/L (98-107) 06/19/18 07:15 Carbon Dioxide 27 mmol/L (21-32) 06/19/18 07:15 Anion Gap 10 MMOL/L (8-16) 06/19/18 07:15 BUN 11 mg/dL (7-18) 06/19/18 07:15 Creatinine 0.7 mg/dL (0.55-1.3) 06/19/18 07:15 Creat Clearance w eGFR > 60 (>60) 06/19/18 07:15 Random Glucose 79 mg/dL (74-106) 06/19/18 07:15 Calcium 8.2 mg/dL (8.5-10.1) L 06/19/18 07:15 Total Bilirubin 0.5 mg/dL (0.2-1) 06/19/18 07:15 AST 16 U/L (15-37) 06/19/18 07:15 ALT 17 U/L (13-61) 06/19/18 07:15 Alkaline Phosphatase 102 U/L (45-117) 06/19/18 07:15 Total Protein 6.1 g/dl (6.4-8.2) L 06/19/18 07:15 Albumin 3.2 g/dl (3.4-5.0) L 06/19/18 07:15 Urine Color Yellow 06/18/18 15:55 Urine Appearance Clear 06/18/18 15:55 Urine pH 5.0 (5.0-8.0) D 06/18/18 15:55 Ur Specific [place] 1.021 (1.010-1.035) 06/18/18 15:55 Urine Protein Negative (NEGATIVE) 06/18/18 15:55 Urine Glucose (UA) Negative (NEGATIVE) 06/18/18 15:55 Urine Ketones Negative (NEGATIVE) 06/18/18 15:55 Urine Blood Negative (NEGATIVE) 06/18/18 15:55 Urine Nitrite Negative (NEGATIVE) 06/18/18 15:55 Urine Bilirubin Negative (<2.0 mg/dL) 06/18/18 15:55 Urine Urobilinogen Negative mg/dL (0.2-1.0) 06/18/18 15:55 Ur Leukocyte Esterase Negative (NEGATIVE) 06/18/18 15:55 RPR Titer Nonreactive (NONREACTIVE) 06/19/18 07:15 lab noted Assessment: 06/20/18 12:55 withdrawal sx Plan: continue detox
[2018-06-20] MEDS ORDERED: IBUPROFEN 600 MG TABLET (FP) PO PRN (13:15)
[2018-06-20] MEDS: diazePAM 5 MG TABLET PO PRN (15:50)
[2018-06-20] MEDS: THIAMINE HCL 100 MG TABLET (FP) PO SCH (22:24)
[2018-06-20] MEDS: QUEtiapine FUMARATE 400 MG TABLET PO SCH (22:25)
[2018-06-20] MEDS: MIRTAZAPINE 30 MG TABLET (FP) PO SCH (22:25)
[2018-06-21] MEDS: BUPRENORPHINE/NALOXONE 8 MG/2 MG FILM PACKET SL SCH ×3 (06:12→22:05)
[2018-06-21] MEDS: PRENATAL VITAMINS W/ FOLIC ACID TABLET (FP) PO SCH (09:55)
[2018-06-21] MEDS: ALBUTEROL SO4 8 GM HFA INHALER IH PRN ×2 (09:55→16:42)
[2018-06-21] MEDS: diazePAM 5 MG TABLET PO SCH ×2 (09:55→22:05)
--- NOTE | 2018-06-21 11:07 | PN ---
[facility] Progress Note (SOAP) Subjective: feeling better no tremor less sweat social with peers in day room patient wants to return to suboxone program for medical mental and addiction issues Objective: 06/21/18 11:07 Vital Signs Temperature 96.6 F L 06/21/18 09:12 Pulse Rate 65 06/21/18 09:12 Respiratory Rate 16 06/21/18 09:12 Blood Pressure 115/72 06/21/18 09:12 O2 Sat by Pulse Oximetry (%) Laboratory Last Values WBC 6.2 K/mm3 (4.0-10.0) 06/19/18 07:15 RBC 4.03 M/mm3 (4.00-5.60) 06/19/18 07:15 Hgb 14.0 GM/dL (11.7-16.9) 06/19/18 07:15 Hct 40.6 % (35.4-49) 06/19/18 07:15 MCV 100.8 fl (80-96) H 06/19/18 07:15 MCH 34.8 pg (25.7-33.7) H 06/19/18 07:15 MCHC 34.5 g/dl (32.0-35.9) 06/19/18 07:15 RDW 13.7 % (11.9-15.9) D 06/19/18 07:15 Plt Count 191 K/MM3 (134-434) 06/19/18 07:15 MPV 7.3 fl (7.5-11.1) L 06/19/18 07:15 Sodium 142 mmol/L (136-145) 06/19/18 07:15 Potassium 3.6 mmol/L (3.5-5.1) 06/19/18 07:15 Chloride 105 mmol/L (98-107) 06/19/18 07:15 Carbon Dioxide 27 mmol/L (21-32) 06/19/18 07:15 Anion Gap 10 MMOL/L (8-16) 06/19/18 07:15 BUN 11 mg/dL (7-18) 06/19/18 07:15 Creatinine 0.7 mg/dL (0.55-1.3) 06/19/18 07:15 Creat Clearance w eGFR > 60 (>60) 06/19/18 07:15 Random Glucose 79 mg/dL (74-106) 06/19/18 07:15 Calcium 8.2 mg/dL (8.5-10.1) L 06/19/18 07:15 Total Bilirubin 0.5 mg/dL (0.2-1) 06/19/18 07:15 AST 16 U/L (15-37) 06/19/18 07:15 ALT 17 U/L (13-61) 06/19/18 07:15 Alkaline Phosphatase 102 U/L (45-117) 06/19/18 07:15 Total Protein 6.1 g/dl (6.4-8.2) L 06/19/18 07:15 Albumin 3.2 g/dl (3.4-5.0) L 06/19/18 07:15 Urine Color Yellow 06/18/18 15:55 Urine Appearance Clear 06/18/18 15:55 Urine pH 5.0 (5.0-8.0) D 06/18/18 15:55 Ur Specific [place] 1.021 (1.010-1.035) 06/18/18 15:55 Urine Protein Negative (NEGATIVE) 06/18/18 15:55 Urine Glucose (UA) Negative (NEGATIVE) 06/18/18 15:55 Urine Ketones Negative (NEGATIVE) 06/18/18 15:55 Urine Blood Negative (NEGATIVE) 06/18/18 15:55 Urine Nitrite Negative (NEGATIVE) 06/18/18 15:55 Urine Bilirubin Negative (<2.0 mg/dL) 06/18/18 15:55 Urine Urobilinogen Negative mg/dL (0.2-1.0) 06/18/18 15:55 Ur Leukocyte Esterase Negative (NEGATIVE) 06/18/18 15:55 RPR Titer Nonreactive (NONREACTIVE) 06/19/18 07:15 lab noted Assessment: 06/21/18 11:10 mild withdrawal sx last suboxone 90 films at 06/15/18 Plan: medically supervised detox
[2018-06-21] MEDS: diazePAM 5 MG TABLET PO PRN (12:20)
[2018-06-21] MEDS: QUEtiapine FUMARATE 400 MG TABLET PO SCH (22:05)
[2018-06-21] MEDS: MIRTAZAPINE 30 MG TABLET (FP) PO SCH (22:05)
[2018-06-21] MEDS: THIAMINE HCL 100 MG TABLET (FP) PO SCH (22:05)
[2018-06-22 06:11] VITALS: BP 99/56; PULSE 72; TEMP 97.4
[2018-06-22] MEDS: BUPRENORPHINE/NALOXONE 8 MG/2 MG FILM PACKET SL SCH (07:00)
[2018-06-22] MEDS ORDERED: diazePAM 5 MG TABLET PO SCH (10:00)
--- NOTE | 2018-06-22 13:38 | DS ---
[facility] Detox Discharge Summary Admission Date: 06/18/18 Discharge Date: 06/22/18 - History Present History: Alcohol Dependence Additional Comments: 37 years old male admitted on 06/18/18 for alcohol withdrawal stabilization completed alcohol detox regimen tolerated well alert no acute distress aftercare community self help meeting and group Pertinent Past History: patient wants to return to his suboxone provider for medical mental and addiction issues - Physical Exam Results Vital Signs: Vital Signs Temperature 97.4 F L 06/22/18 06:10 Pulse Rate 72 06/22/18 06:10 Respiratory Rate 18 06/22/18 06:30 Blood Pressure 99/56 L 06/22/18 06:10 O2 Sat by Pulse Oximetry (%) Pertinent Admission Physical Exam Findings: alcohol withdrawal sx Vital Signs Temperature 97.4 F L 06/22/18 06:10 Pulse Rate 72 06/22/18 06:10 Respiratory Rate 18 06/22/18 06:30 Blood Pressure 99/56 L 06/22/18 06:10 O2 Sat by Pulse Oximetry (%) Laboratory Last Values WBC 6.2 K/mm3 (4.0-10.0) 06/19/18 07:15 RBC 4.03 M/mm3 (4.00-5.60) 06/19/18 07:15 Hgb 14.0 GM/dL (11.7-16.9) 06/19/18 07:15 Hct 40.6 % (35.4-49) 06/19/18 07:15 MCV 100.8 fl (80-96) H 06/19/18 07:15 MCH 34.8 pg (25.7-33.7) H 06/19/18 07:15 MCHC 34.5 g/dl (32.0-35.9) 06/19/18 07:15 RDW 13.7 % (11.9-15.9) D 06/19/18 07:15 Plt Count 191 K/MM3 (134-434) 06/19/18 07:15 MPV 7.3 fl (7.5-11.1) L 06/19/18 07:15 Sodium 142 mmol/L (136-145) 06/19/18 07:15 Potassium 3.6 mmol/L (3.5-5.1) 06/19/18 07:15 Chloride 105 mmol/L (98-107) 06/19/18 07:15 Carbon Dioxide 27 mmol/L (21-32) 06/19/18 07:15 Anion Gap 10 MMOL/L (8-16) 06/19/18 07:15 BUN 11 mg/dL (7-18) 06/19/18 07:15 Creatinine 0.7 mg/dL (0.55-1.3) 06/19/18 07:15 Creat Clearance w eGFR > 60 (>60) 06/19/18 07:15 Random Glucose 79 mg/dL (74-106) 06/19/18 07:15 Calcium 8.2 mg/dL (8.5-10.1) L 06/19/18 07:15 Total Bilirubin 0.5 mg/dL (0.2-1) 06/19/18 07:15 AST 16 U/L (15-37) 06/19/18 07:15 ALT 17 U/L (13-61) 06/19/18 07:15 Alkaline Phosphatase 102 U/L (45-117) 06/19/18 07:15 Total Protein 6.1 g/dl (6.4-8.2) L 06/19/18 07:15 Albumin 3.2 g/dl (3.4-5.0) L 06/19/18 07:15 Urine Color Yellow 06/18/18 15:55 Urine Appearance Clear 06/18/18 15:55 Urine pH 5.0 (5.0-8.0) D 06/18/18 15:55 Ur Specific [place] 1.021 (1.010-1.035) 06/18/18 15:55 Urine Protein Negative (NEGATIVE) 06/18/18 15:55 Urine Glucose (UA) Negative (NEGATIVE) 06/18/18 15:55 Urine Ketones Negative (NEGATIVE) 06/18/18 15:55 Urine Blood Negative (NEGATIVE) 06/18/18 15:55 Urine Nitrite Negative (NEGATIVE) 06/18/18 15:55 Urine Bilirubin Negative (<2.0 mg/dL) 06/18/18 15:55 Urine Urobilinogen Negative mg/dL (0.2-1.0) 06/18/18 15:55 Ur Leukocyte Esterase Negative (NEGATIVE) 06/18/18 15:55 RPR Titer Nonreactive (NONREACTIVE) 06/19/18 07:15 lab noted - Treatment Hospital Course: Detox Protocol Followed, Detoxed Safely, Responded well, Discharged Condition Good, Rehab Referral Accepted Patient has Accepted a Rehab Referral to: community self help group and meeting - Medication Discharge Medications: Ambulatory Orders Mirtazapine [Remeron -] 30 mg PO HS 03/28/16 Quetiapine Fumarate [Seroquel -] 800 mg PO HS 03/28/16 Buprenorphine/Naloxone [Suboxone 8Mg/2Mg Sl Film -] 1 each SL TID 06/18/18 Albuterol Sulfate Inhaler - [Ventolin HFA Inhaler -] 2 puff IH Q4H PRN #1 inhaler 06/21/18 - Diagnosis (1) Alcohol dependence with uncomplicated withdrawal Status: Acute (2) Asthma Status: Chronic Qualifiers: Asthma severity: mild Asthma persistence: intermittent Asthma complication type: with status asthmaticus Qualified Code(s): J45.22 - Mild intermittent asthma with status asthmaticus (3) Nicotine dependence Status: Acute Qualifiers: Nicotine product type: cigarettes Substance use status: in withdrawal Qualified Code(s): F17.213 - Nicotine dependence, cigarettes, with withdrawal (4) Encounter for monitoring Suboxone maintenance therapy Status: Chronic - AMA Did Patient Leave Against Medical Advice: No
== END 2018-06-22 08:20 | disposition home or self-care (01) | DRG 897 ==
LOC: YASAS 11:54 → Y3N 13:17
PROC: HZ2ZZZZ Detoxification Services for Substance Abuse Treatment (ICD-10-PCS; principal; 2018-06-18)
DX: F10.230 Alcohol dependence with withdrawal, uncomplicated (principal); F11.10 Opioid abuse, uncomplicated; F17.210 Nicotine dependence, cigarettes, uncomplicated; F25.0 Schizoaffective disorder, bipolar type; J45.909 Unspecified asthma, uncomplicated; K40.90 Unilateral inguinal hernia, without obstruction or gangrene, not specified as recurrent; R63.4 Abnormal weight loss; Z68.24 Body mass index [BMI] 24.0-24.9, adult; Z51.81 Encounter for therapeutic drug level monitoring; Z86.69 Personal history of other diseases of the nervous system and sense organs; Z91.5 Personal history of self-harm
CPT/HCPCS: 36415; 80053; 81003; 85027; 86593; 94640

== ENCOUNTER 2018-07-16 20:48 | Emergency (ER) | payer OTHER ==
[2018-07-16 21:15] VITALS: BP 113/75; PULSE 96; TEMP 97.9; BMI 25.8
--- NOTE | 2018-07-16 21:27 | PDOC ---
History of Present Illness - General Chief Complaint: Pain, Acute Stated Complaint: LEG AND ABDOMINAL PAIN, requesting psych meds Time Seen by Provider: 07/16/18 21:25 History Source: Patient Exam Limitations: No Limitations - History of Present Illness Initial Comments: HPI: 38 y/o male presenting to [facility] ER complaining of painful varicose veins in left leg as well as a right inguinal hernia. Pt states the leg pain has been chronic and unchanged for four years. Denies trauma or numbness or tingling to area. Pt has been taking between 8-10 Ibuprofen and another 8-10 Advil daily to help with the pain. Also has attempted relief with 1-2 pints of Vodka per day. Last drank one pint of Vodka this morning. Further endorses heroin and street opiate use. Estimates spending $100 per day on Heroin. Last used yesterday. Additionally complaining of shortness of breath for the past three weeks with night time coughing. Ran out of home inhaler. PCP: None Social Hx: - EtOH: 1-2 Pints Vodka per day - Tobacco: Daily smoker - Street Drugs: Heroin and other opiates Medical Hx: - Asthma Past History - Past Medical History Allergies/Adverse Reactions: Allergies Allergy/AdvReac Type Severity Reaction Status Date / Time chlordiazepoxide HCl Allergy Severe Difficulty Verified 07/16/18 21:12 [From Librium] Breathing haloperidol [From Haldol] Allergy Severe Difficulty Verified 07/16/18 21:12 Breathing Home Medications: Ambulatory Orders Mirtazapine [Remeron -] 30 mg PO HS 03/28/16 Quetiapine Fumarate [Seroquel -] 800 mg PO HS 03/28/16 Buprenorphine/Naloxone [Suboxone 8Mg/2Mg Sl Film -] 1 each SL TID 06/18/18 Albuterol Sulfate Inhaler - [Ventolin HFA Inhaler -] 2 puff IH Q4H PRN #1 inhaler 06/21/18 Anemia: No Asthma: No Cancer: No Cardiac Disorders: No CVA: No COPD: No CHF: No Dementia: No Diabetes: No GI Disorders: No Disorders: No HTN: No Hypercholesterolemia: No Kidney Stones: No Liver Disease: No Psychiatric Problems: Yes Seizures: Yes (pt. reported alcohol r/t seizure, last episode was one yr ago.) Thyroid Disease: No - Surgical History Abdominal Surgery: No Appendectomy: No Cardiac Surgery: No Cholecystectomy: No Lung Surgery: No Neurologic Surgery: No Orthopedic Surgery: No - Reproductive History Testicular Surgery: No - Suicide/Smoking/Psychosocial Hx Smoking History: Never smoked Have you smoked in the past 12 months: No Number of Cigarettes Smoked Daily: 10 Cigars Per Day: 0 Information on smoking cessation initiated: No 'Breaking Loose' booklet given: 06/18/18 Hx Alcohol Use: No Drug/Substance Use Hx: No Substance Use Type: Alcohol, Heroin Hx Substance Use Treatment: Yes ([facility] 10/01/17 to 10/04/17) Review of Systems - Review of Systems Able to Perform ROS?: Yes Comments:: In addition to that documented in the HPI above, the additional ROS was obtained : Constitutional: Denies fevers or chills Eyes: Denies vision changes ENMT: Denies sore throat CV: Denies chest pain Resp: Per HPI GI: Endorses vomiting without blood or emesis. Diarrhea. : Denies painful urination MSK: Denies recent trauma Skin: Denies new rashes Neuro: Denies new numbness or tingling or weakness Endocrine: Denies polyuria Heme: Denies bleeding or bruising *Physical Exam - Vital Signs Last Vital Signs Temp Pulse Resp BP Pulse Ox 97.9 F 96 H 16 113/75 100 07/16/18 21:08 07/16/18 21:08 07/16/18 21:08 07/16/18 21:08 07/16/18 21:08 - Physical Exam Comments: Constitutional: Thin adult male in no acute distress or obvious discomfort. Found laying in right lateral recumbent position on hallway bed. Alert and oriented x4. Answered all questions appropriately and completely. Speech was non -labored, non-pressured. Head: Normocephalic. No obvious external signs of trauma. Eyes: Sclerae white. EARS: Hearing grossly intact. NOSE: No nasal discharge. Neck: Supple, trachea is midline. Cardiovascular: Regular rate and regular rhythm. No murmur, rubs, clicks, or gallops. Peripheral pulses: Radial pulses full. Respiratory: Breathing unlabored. Equal chest rise and fall. Clear to auscultation bilaterally. No stridor, no wheezing, no rhonchi. Gastrointestinal: abdomen is soft, non-tender, non-distended. No overlying skin lesions or obvious signs of trauma. Pt pulled down top of pants to show small bulge to right groin that increased in size with cough. No apparent overlying skin lesions. Neuro: Alert and oriented. Moving all four extremities spontaneously. Skin: Warm, dry, and intact. Psych: Affect: appropriate. Mood: normal. Moderate Sedation - Procedure Monitoring Vital Signs: Procedure Monitoring Vital Signs Temperature 97.9 F 07/16/18 21:08 Pulse Rate 96 H 07/16/18 21:08 Respiratory Rate 16 07/16/18 21:08 Blood Pressure 113/75 07/16/18 21:08 O2 Sat by Pulse Oximetry (%) 100 07/16/18 21:08 ED Treatment Course - LABORATORY CBC & Chemistry Diagram: 07/16/18 22:40 07/16/18 22:40 Medical Decision Making - Medical Decision Making *Reviewed vital signs, nursing notes, and prior visit documentation (if available). 38 y/o male complaining of painful varicose veins, non painful and unchanged right inguinal hernia, and mild shortness of breath unchanged for three weeks. Requesting pain medication because the over the counter medication is not helping. Afebrile. Vitals unremarkable for hypotension or tachycardia. Physical exam as described above. Will obtain CBC, CMP, Acetaminophen, Salicylates, and Alcohol to evaluate based on amount of OTC NSAIDs versus possible other unknown types. Ordered Lidocaine patch for symptom relief given unknown amount of OTC non-opiate medication usage prior to arrival. Pt expressed interest in inpatient detox program. [facility] does not have male beds available. Suggested pt should self- present at 8am. 07/17/18 0001 Pt signed out to resident Dr. Coles after she was verbally appraised of the pts HPI, current ED course, and plan of management. Will follow up on CMP and toxicologic studies. *DC/Admit/Observation/Transfer Diagnosis at time of Disposition: Leg pain, left - Discharge Dispostion Condition at time of disposition: Stable - Referrals - Patient Instructions - Post Discharge Activity
[2018-07-16] MEDS ORDERED: LIDOCAINE 5% TOPICAL PATCH TP ONE (22:05)
[2018-07-16] MEDS ORDERED: ALBUTEROL SO4 2.5/IPRATROPIUM 0.5 INH SOL 3 ML VIAL.NEB. NEB ONE ×2 (22:09→22:33)
[2018-07-16] MEDS ORDERED: LIDOCAINE 5% TOPICAL PATCH ONE (22:33)
[2018-07-16 22:53] LABS: MEAN PLT VOLUME 6.1 fl (7.5-11.1); RDW 12.8 % (11.9-15.9)
[2018-07-16 22:58] LABS: BASO % 1.2 % (0-2.0); EOS % 12.8 % (0-4.5); HEMATOCRIT 40.1 % (35.4-49); MCH 34.4 pg (25.7-33.7); MEAN CELL VOLUME 98.2 fl (80-96); MONO % 9.1 % (3.8-10.2); NEUT % 35.9 % (42.8-82.8); PLATELET COUNT 281 K/MM3 (134-434); RBC 4.08 M/mm3 (4.00-5.60); WHITE BLOOD COUNT 5.9 K/mm3 (4.0-10.0)
--- NOTE | 2018-07-16 23:24 | PDOC ---
Attending Attestation - HPI HPI: This patient is 38 year old male, with PMHx of opioid abuse and alcohol abuse, asthma, chronic left leg pain and varicosities , who presents to the ED with left leg varicose veins and right sided inguinal hernia. Patient also endorses 3 weeks of some sob, and wheezing. Patient states that he is able to walk however he has been walking somewhat slower than normal. Patient also notes taking 8-10 Advil & Ibuprofen/day. Last EtOH use - pint of vodka this morning. Last drug use - yesterday. Denies recent injury, trauma, able to walk. Social Hx: Chronic opioid, heroin, alcohol (1-2 L vodka daily), and tobacco use (chain smoker). <Xochitl Jones - Last Filed: 07/16/18 23:27> - Resident Resident Name: Amrit Lanza - ED Attending Attestation I have performed the following: I have examined & evaluated the patient, The case was reviewed & discussed with the resident, I agree w/resident's findings & plan, Exceptions are as noted - Physicial Exam PE: 07/17/18 00:55 Vitals: Triage Vital signs reviewed General Appearance: no acute distress, well nourished well developed, Head: Atraumatic, Eyes: Pupils equal reactive round, extraocular movement intact Neck: Supple;No Nucal rigidity Chest Wall: Nontender Cardiac: Regular rate and rhythym, no murmurs, no rubs, no gallops, Lungs: Clear to auscultation bilateral, good air movement bilaterally, Abdomen: Soft, non distended, normal bowel sounds, non tender to palpation Extremities: Full range of motion to all extremities, no cyanosis, clubbing, or edema, tenderness to palpation over the left foot Skin: Warm and dry, no rashes or lesions, no rash, no petechiae Neuro: AOX3; Cranial Nerves 2-12 grossly intact, Strength intact to all extremities, Sensation intact to all extremities,gait normal Psych: normal mood, normal affect - Medical Decision Making 07/17/18 00:57 Chronic leg pain history of opiate abuse currently snorts heroin, no IV drug use current alcohol use presents to the ED complaining of his chronic pain and mild wheezing Nebulizer treatment given which improved patient's wheezing Patient was interested in detox un-fortunately several attempts were made to find placement and no beds were available this evening. Patient will try [facility] in the morning at 8 AM Patient observed in the emergency department for 4 hours. At this time he is clinically sober with steady gait able to ambulate he will be discharged home he will follow up tomorrow morning with detox Findings, the need for follow-up and strict return instructions discussed with patient. <Mike Valle - Last Filed: 07/17/18 22:13>
[2018-07-17 00:06] LABS: ALBUMIN 3.6 g/dl (3.4-5.0); ALK PHOS 103 U/L (45-117); ANION GAP 11 MMOL/L (8-16); BILIRUBIN,TOTAL 0.2 mg/dL (0.2-1); BLOOD UREA NITROGEN 8 mg/dL (7-18); CALCIUM 8.4 mg/dL (8.5-10.1); CHLORIDE 104 mmol/L (98-107); CO2 26 mmol/L (21-32); CREATININE 0.7 mg/dL (0.55-1.3); GLUCOSE,RANDOM 118 mg/dL (74-106); POTASSIUM 3.7 mmol/L (3.5-5.1); SGOT/AST 16 U/L (15-37); SGPT/ALT 15 U/L (13-61); SODIUM 141 mmol/L (136-145); TOT PROT 6.8 g/dl (6.4-8.2)
--- NOTE | 2018-07-17 00:46 | PDOC ---
*Physical Exam - Vital Signs Last Vital Signs Temp Pulse Resp BP Pulse Ox 97.9 F 96 H 16 113/75 100 07/16/18 21:25 07/16/18 21:25 07/16/18 21:25 07/16/18 21:25 07/16/18 21:25 ED Treatment Course - LABORATORY CBC & Chemistry Diagram: 07/16/18 22:40 07/16/18 22:40 - ADDITIONAL ORDERS Additional order review: Laboratory Results 07/16/18 07/16/18 22:40 22:40 Sodium 141 Potassium 3.7 Chloride 104 Carbon Dioxide 26 Anion Gap 11 BUN 8 Creatinine 0.7 Creat Clearance w eGFR > 60 Random Glucose 118 H Calcium 8.4 L Total Bilirubin 0.2 AST 16 ALT 15 Alkaline Phosphatase 103 Total Protein 6.8 Albumin 3.6 Salicylates < 1.7 L Acetaminophen < 2.0 L Alcohol, Quantitative 240.5 H 07/16/18 22:40 RBC 4.08 MCV 98.2 H MCHC 35.0 RDW 12.8 MPV 6.1 L D Neutrophils % 35.9 L Lymphocytes % 41.0 H Monocytes % 9.1 Eosinophils % 12.8 H Basophils % 1.2 - Medications Given in the ED: ED Medications Discontinued Medications Generic Name Dose Route Start Last Admin Trade Name Freq PRN Reason Stop Dose Admin Albuterol/Ipratropium 1 amp 07/16/18 22:09 07/16/18 22:58 Duoneb - NEB 07/16/18 22:10 1 amp ONCE ONE Administration Lidocaine 1 patch 07/16/18 22:05 07/16/18 22:58 Lidoderm Patch - TP 07/16/18 22:06 1 patch ONCE ONE Administration Medical Decision Making - Medical Decision Making Patient signed out from Dr. Lanza ETOH level consistent with intoxication No leukocytosis or anemia Negative toxicity for salicylates or acetaminophen Electrolytes unremarkable Patient found sleeping in stretcher. Explained findings and instructed patient to present to [facility] at 8am tomorrow for detox. Patient discharged. 07/17/18 00:52 *DC/Admit/Observation/Transfer Diagnosis at time of Disposition: Leg pain, left - Discharge Dispostion Disposition: HOME Condition at time of disposition: Stable - Referrals - Patient Instructions Printed Discharge Instructions: DI for Varicose Veins Additional Instructions: You came to the ED for leg pain. We performed a workup which did not indicate acute pathology. You can take [id number] tylenol for pain. Follow the instructions on the medication bottle. You can also use [id number] lidocaine patches. Apply as directed on the packaging over the tender area. Present to [facility] at 8am tomorrow for detox: [place] [phone] Follow-up with you primary care physician in 5-7 days to discuss this ED visit and to further evaluate your symptoms. Your care is not complete until you do so. Call and make an appointment. Immediate medical attention is required if you have: a seizure or develop tremors or hallucinations and do not have access to alcohol, vomiting, chest pain, shortness of breath, abdominal pain, thoughts of self-harm, or an other new or concerning symptoms. If you think you are having an emergency, call for emergency medical services or present to the emergency department right away. - Post Discharge Activity
== END 2018-07-17 01:09 | disposition home or self-care (01) ==
LOC: JER 20:48
DX: I83.92 Asymptomatic varicose veins of left lower extremity (principal)
CPT/HCPCS: 36415; 80053; 80307; 85025; 99284-25

== ENCOUNTER 2018-07-31 16:45 | Inpatient (IN) | payer OTHER ==
[2018-07-31 17:39] VITALS: BMI 24.2
--- NOTE | 2018-07-31 18:09 | HP ---
CIWA Score - Admission Criteria [facility] Guidelines: Admission for Medically Managed Detox: Requires at least one of the followin. CIWA greater than 12 2. Seizures within the past 24 hours 3. Delirium tremens within the past 24 hours 4. Hallucinations within the past 24 hours 5. Acute intervention needed for co occurring medical disorder 6. Acute intervention needed for co occurring psychiatric disorder 7. Severe withdrawal that cannot be handled at a lower level of care (continued vomiting, continued diarrhea, abnormal vital signs) requiring intravenous medication and/or fluids 8. Admission ROS [facility] Chief Complaint: "alcohol detox" 38 yo with h/o asthma, schizoaffective d/o, was last here for detox last month. Says he relapsed after 2 weeks. On suboxone but pt states has not taken it for the last week. Alcohol- 4 pints/day- vodka, h/o withdrawal seizures, no DT's heroin- 10 bags- sniffing, DUR" suboxone 8mg films #90 on 06/15/18 Utox: neg, UNRULY 0.061 Allergies/Adverse Reactions: Allergies Allergy/AdvReac Type Severity Reaction Status Date / Time chlordiazepoxide HCl Allergy Severe Difficulty Verified 07/31/18 17:47 [From Librium] Breathing haloperidol [From Haldol] Allergy Severe Difficulty Verified 07/31/18 17:47 Breathing Exam Limitations: No Limitations, Clinical Condition - Ebola screening Have you traveled outside of the country in the last 21 days: No Have you had contact with anyone from an Ebola affected area: No Have you been sick,other than usual withdrawal symptoms: No Patient History - Patient Medical History Hx Anemia: No Hx Asthma: Yes (MDI) Hx Chronic Obstructive Pulmonary Disease (COPD): No Hx Cancer: No Hx Cardiac Disorders: No Hx Congestive Heart Failure: No Hx Hypertension: No Hx Hypercholesterolemia: No Hx Pacemaker: No HX Cerebrovascular Accident: No Hx Seizures: Yes (pt. reported alcohol r/t seizure, last episode was one yr ago. ) Hx Dementia: No Hx Diabetes: No Hx Gastrointestinal Disorders: No Hx Liver Disease: No Hx Genitourinary Disorders: No Hx Sexually Transmitted Disorders: No Hx Renal Disease (ESRD): No Hx Thyroid Disease: No Hx Human Immunodeficiency Virus (HIV): No (last 01/26 negative) Hx Hepatitis C: No Hx Depression: Yes Hx Suicide Attempt: No Hx Bipolar Disorder: No Hx Schizophrenia: Yes - Patient Surgical History Past Surgical History: No Hx Neurologic Surgery: No Hx Cataract Extraction: No Hx Cardiac Surgery: No Hx Lung Surgery: No Hx Breast Surgery: No Hx Breast Biopsy: No Hx Abdominal Surgery: No Hx Appendectomy: No Hx Cholecystectomy: No Hx Genitourinary Surgery: No Hx Section: No Hx Orthopedic Surgery: No Anesthesia Reaction: No - PPD History Previous Implant?: Yes Documented Results: Negative w/proof Date: 03/30/16 Results: 0 mm - Smoking Cessation Smoking history: Never smoked Have you smoked in the past 12 months: No Aproximately how many cigarettes per day: 10 Cigars Per Day: 0 Hx Chewing Tobacco Use: No Initiated information on smoking cessation: Yes 'Breaking Loose' booklet given: 07/31/18 - Substance & Tx. History Hx Alcohol Use: Yes Hx Substance Use: Yes Substance Use Type: Alcohol, Heroin, Prescribed - Substances Abused Alcohol Route: Oral Frequency: Daily Amount used: LIQUOR- 2 PINTS, BEER- 2 SIX PACK Age of first use: 12 Date of Last Use: 07/31/18 Heroin Route: Inhalation Frequency: 1-2 times per week Family Disease History - Family Disease History Family Disease History: Diabetes: Grandparent (HTN,NE,BREAST), Heart Disease: Grandparent, CA: Grandparent Admission Physical Exam BHS - Vital Signs Vital Signs: Vital Signs - 24 hr 07/31/18 17:34 Temperature 98.6 F Pulse Rate 100 H Respiratory 18 Rate Blood Pressure 125/83 - Physical General Appearance: Yes: Within Normal Limits, No Apparent Distress HEENTM: Yes: Within Normal Limits Respiratory: Yes: Within Normal Limits Neck: Yes: Within Normal Limits Cardiology: Yes: Within Normal Limits Abdominal: Yes: Within Normal Limits Genitourinary: Yes: Within Normal Limits Back: Yes: Within Normal Limits Extremities: Yes: Within Normal Limits Neurological: Yes: Within Normal Limits Integumentary: Yes: Within Normal Limits Lymphatic: Yes: Within Normal Limits - Diagnostic (1) Alcohol dependence with uncomplicated withdrawal Current Visit: No Status: Acute (2) Nicotine dependence Current Visit: No Status: Acute Qualifiers: Nicotine product type: cigarettes Substance use status: in withdrawal Qualified Code(s): F17.213 - Nicotine dependence, cigarettes, with withdrawal (3) Asthma Current Visit: No Status: Chronic Qualifiers: Asthma severity: mild Asthma persistence: intermittent Asthma complication type: with status asthmaticus Qualified Code(s): J45.22 - Mild intermittent asthma with status asthmaticus BHS Breath Alcohol Content Breath Alcohol Content: 0.061 Urine Drug Screen - Results Drug Screen Negative: Yes
[2018-07-31] MEDS ORDERED: diazePAM 5 MG TABLET PO PRN (18:12)
[2018-07-31] MEDS ORDERED: P-EPHED 60MG/TRIPROLIDI 2.5MG TABLET PO PRN (18:13)
[2018-07-31] MEDS ORDERED: guaiFENesin/D-METHORPHAN HB 10 ML UNIT-DOSE CUPS PO PRN (18:13)
[2018-07-31] MEDS ORDERED: NICOTINE POLACRILEX 2 MG GUM BC PRN (18:13)
[2018-07-31] MEDS ORDERED: LOPERAMIDE HCL 2 MG CAPSULE PO PRN (18:13)
[2018-07-31] MEDS ORDERED: MAGNESIUM HYDROX 2400MG/30ML ORAL SUSPENSION 30 ML CUP PO PRN (18:13)
[2018-07-31] MEDS ORDERED: ACETAMINOPHEN 325 MG TABLET (FP) PO PRN (18:13)
[2018-07-31] MEDS ORDERED: MAGNESIUM CITRATE 300 ML BOTTLE PO PRN (18:13)
[2018-07-31] MEDS ORDERED: IBUPROFEN 400 MG TABLET (FP) PO PRN (18:13)
[2018-07-31] MEDS ORDERED: MAG HYDROX/AL HYDROX/SIMETH 30 ML UNIT-DOSE CUP PO PRN (18:13)
[2018-07-31] MEDS ORDERED: MENTHOL/PHENOL 1 EACH UD MM PRN (18:13)
[2018-07-31] MEDS ORDERED: ALBUTEROL SO4 8 GM HFA INHALER IH PRN (18:14)
[2018-07-31] MEDS ORDERED: diazePAM 5 MG TABLET PO ONE (18:30)
[2018-07-31] MEDS ORDERED: THIAMINE HCL 100 MG TABLET (FP) PO SCH (22:00)
[2018-07-31] MEDS ORDERED: MELATONIN 5 MG TABLETS PO PRN (22:00)
[2018-07-31] MEDS: diazePAM 5 MG TABLET PO SCH (22:53)
[2018-08-01] MEDS: diazePAM 5 MG TABLET PO SCH (07:00)
[2018-08-01] MEDS ORDERED: PRENATAL VITAMINS W/ FOLIC ACID TABLET (FP) PO SCH (10:00)
[2018-08-01 10:06] LABS: HEMOGLOBIN 13.4 GM/dL (11.7-16.9); MCH 34.3 pg (25.7-33.7); MCHC 34.4 g/dl (32.0-35.9); MEAN CELL VOLUME 99.6 fl (80-96); MEAN PLT VOLUME 6.7 fl (7.5-11.1); PLATELET COUNT 240 K/MM3 (134-434); RBC 3.92 M/mm3 (4.00-5.60); RDW 13.1 % (11.9-15.9); WHITE BLOOD COUNT 8.2 K/mm3 (4.0-10.0)
[2018-08-01 10:14] LABS: ALBUMIN 3.3 g/dl (3.4-5.0); ALK PHOS 66 U/L (45-117); ANION GAP 8 MMOL/L (8-16); BLOOD UREA NITROGEN 16 mg/dL (7-18); CALCIUM 8.1 mg/dL (8.5-10.1); CHLORIDE 110 mmol/L (98-107); CO2 26 mmol/L (21-32); CREATININE 0.7 mg/dL (0.55-1.3); GLUCOSE,RANDOM 88 mg/dL (74-106); POTASSIUM 3.5 mmol/L (3.5-5.1); SGOT/AST 26 U/L (15-37); SGPT/ALT 23 U/L (13-61); SODIUM 145 mmol/L (136-145); TOT PROT 6.2 g/dl (6.4-8.2)
[2018-08-01 10:23] VITALS: BP 115/72; PULSE 84; TEMP 98.1
--- NOTE | 2018-08-01 13:20 | PN ---
S CIWA - CIWA Score Nausea/Vomitin-Mild Nausea/No Vomiting Muscle Tremors: 3 Anxiety: 1-Mildly Anxious Agitation: 1-Slight > Activity Paroxysmal Sweats: 3 Orientation: 0-Oriented Tacttile Disturbances: 0-None Auditory Disturbances: 0-None Visual Disturbances: 0-None Headache: 0-None Present CIWA-Ar Total Score: 9 S Progress Note (SOAP) Subjective: sweats shakes sleep disturbance Objective: 08/01/18 13:08 in bed sleeping arouses to be A & O x 3 Vital Signs Temperature 98.1 F 08/01/18 10:23 Pulse Rate 84 08/01/18 10:23 Respiratory Rate 16 08/01/18 10:23 Blood Pressure 115/72 08/01/18 10:23 O2 Sat by Pulse Oximetry (%) Laboratory Last Values WBC 8.2 K/mm3 (4.0-10.0) 08/01/18 07:55 RBC 3.92 M/mm3 (4.00-5.60) L 08/01/18 07:55 Hgb 13.4 GM/dL (11.7-16.9) 08/01/18 07:55 Hct 39.0 % (35.4-49) 08/01/18 07:55 MCV 99.6 fl (80-96) H 08/01/18 07:55 MCH 34.3 pg (25.7-33.7) H 08/01/18 07:55 MCHC 34.4 g/dl (32.0-35.9) 08/01/18 07:55 RDW 13.1 % (11.9-15.9) 08/01/18 07:55 Plt Count 240 K/MM3 (134-434) 08/01/18 07:55 MPV 6.7 fl (7.5-11.1) L 08/01/18 07:55 Sodium 145 mmol/L (136-145) 08/01/18 07:55 Potassium 3.5 mmol/L (3.5-5.1) 08/01/18 07:55 Chloride 110 mmol/L (98-107) H 08/01/18 07:55 Carbon Dioxide 26 mmol/L (21-32) 08/01/18 07:55 Anion Gap 8 MMOL/L (8-16) 08/01/18 07:55 BUN 16 mg/dL (7-18) 08/01/18 07:55 Creatinine 0.7 mg/dL (0.55-1.3) 08/01/18 07:55 Creat Clearance w eGFR > 60 (>60) 08/01/18 07:55 Random Glucose 88 mg/dL (74-106) 08/01/18 07:55 Calcium 8.1 mg/dL (8.5-10.1) L 08/01/18 07:55 Total Bilirubin 1.0 mg/dL (0.2-1) 08/01/18 07:55 AST 26 U/L (15-37) 08/01/18 07:55 ALT 23 U/L (13-61) 08/01/18 07:55 Alkaline Phosphatase 66 U/L (45-117) 08/01/18 07:55 Total Protein 6.2 g/dl (6.4-8.2) L 08/01/18 07:55 Albumin 3.3 g/dl (3.4-5.0) L 08/01/18 07:55 RPR Titer Nonreactive (NONREACTIVE) 08/01/18 07:55 noted
--- NOTE | 2018-08-01 13:22 | DS ---
S Detox Discharge Summary Admission Date: 07/31/18 Discharge Date: 08/01/18 - History Additional Comments: TC from RN after making rounds that pt wants to leave. Spoke with pt who stated he just wants to leave, states he is bored and just wants to leave. states nothing can be done to encourage/convince him to stay. Denies any home meds other than psych meds (pt has not seen psych for this visit ) In no acute distress. Denies SI/HI. Understands that he will be leaving AMA, and understands the implications. - Physical Exam Results Vital Signs: Vital Signs Temperature 98.1 F 08/01/18 10:23 Pulse Rate 84 08/01/18 10:23 Respiratory Rate 16 08/01/18 10:23 Blood Pressure 115/72 08/01/18 10:23 O2 Sat by Pulse Oximetry (%) - Medication Discharge Medications: Ambulatory Orders Mirtazapine [Remeron -] 30 mg PO HS 03/28/16 Quetiapine Fumarate [Seroquel -] 800 mg PO HS 03/28/16 Buprenorphine/Naloxone [Suboxone 8Mg/2Mg Sl Film -] 1 each SL TID 06/18/18 Albuterol Sulfate Inhaler - [Ventolin HFA Inhaler -] 2 puff IH Q4H PRN #1 inhaler 06/21/18 - AMA Did Patient Leave Against Medical Advice: Yes
[2018-08-02 08:19] LABS: URINE APPEARANCE CLEAR; URINE BILIRUBIN NEGATIVE (<2.0 mg/dL); URINE COLOR LTYELLOW; URINE GLUCOSE (UA) NEGATIVE (NEGATIVE); URINE KETONE NEGATIVE (NEGATIVE); URINE LEUK ESTERASE NEGATIVE (NEGATIVE); URINE NITRITE NEGATIVE (NEGATIVE); URINE PROTEIN NEGATIVE (NEGATIVE); URINE UROBILINOGEN NEGATIVE mg/dL (0.2-1.0)
[2018-08-02] MEDS ORDERED: diazePAM 5 MG TABLET PO SCH (10:00)
[2018-08-04] MEDS ORDERED: diazePAM 5 MG TABLET PO SCH (10:00)
== END 2018-08-01 11:58 | disposition left against medical advice (07) | DRG 894 ==
LOC: YASAS 16:45 → Y6N 18:26
PROVIDERS: ADMIT Neuromusculoskeletal Medicine & OMM; ATTEND Neuromusculoskeletal Medicine & OMM
PROC: HZ2ZZZZ Detoxification Services for Substance Abuse Treatment (ICD-10-PCS; principal; 2018-07-31)
DX: F10.230 Alcohol dependence with withdrawal, uncomplicated (principal); J45.22 Mild intermittent asthma with status asthmaticus; F17.213 Nicotine dependence, cigarettes, with withdrawal; Z86.69 Personal history of other diseases of the nervous system and sense organs
CPT/HCPCS: 36415; 80053; 81003; 85027; 86593